=== PATIENT | female | born 1975 | race Caucasian/White ===

== ENCOUNTER 2018-04-06 13:38 | Emergency (ER) | payer BC ==
[2018-04-06] MEDS ORDERED: Aspirin 81 MG Tab.Chew ONE (13:43)
[2018-04-06] MEDS ORDERED: Nitroglycerin 0.4 MG Tab.SL ONE (13:45)
[2018-04-06] MEDS: Nitroglycerin 0.4 MG Tab.SL SL PRN ×2 (13:45→15:08)
[2018-04-06] MEDS ORDERED: Ondansetron 4 MG/2 ML SDV ONE (13:47)
--- NOTE | 2018-04-06 14:10 | EDM.PDOC ---
ED HPI GENERAL MEDICAL PROBLEM - General Chief Complaint: Chest Pain Stated Complaint: cardiovascular complaint Time Seen by Provider: 04/06/18 13:40 Source of Information: Reports: Patient History Limitations: Reports: No Limitations - History of Present Illness INITIAL COMMENTS - FREE TEXT/NARRATIVE: 42-year-old female presents to the emergency room with complaints of left chest pain. Onset was approximately 1310. She reports the pain was sharp and intermittent lasting approximately 15 seconds. Pain would recur approximately every 10 minutes. She took 1 baby aspirin. The chest pain occur she would describe it as a 7 out of 10. She had some radiation to the left shoulder and scapula. She denied jaw pain neck pain or abdominal pain. She had associated nausea. She denies palpitations. She is not diaphoretic. She denies any visual changes or changes in speech. She denies any weakness or dizziness. She's had prior history of syncopal episodes a couple years ago. This was followed up with an echo. She reports echocardiogram looked unremarkable. She's lost approximately 100 pounds and has had a gastric bypass in 2009. 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 She's never had any prior history of chest pain. She denies high cholesterol or hypertension. She is a nonsmoker. Patient does report that she's had a little bit of extra stress recently as her daughter is getting next week. Family history significant for cardiovascular disease. Father's had an CA at 63 years old. He had stents placed. Her mother is . Her mother had a history of congestive heart failure and high cholesterol. Onset: Today Onset Date: 04/06/18 Onset Time: 13:10 Duration: Minutes:, Intermittent Location: Reports: Chest, Back, Lower Extremity, Left (left shoulder) Quality: Reports: Stabbing Severity: Severe Improves with: Reports: None Worsens with: Reports: None Associated Symptoms: Reports: Chest Pain, Nausea/Vomiting. 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 (81mg) Left Chest Pain Score (Numeric/FACES): 7 - Related Data Allergies Allergy/AdvReac Type Severity Reaction Status Date / Time erythromycin base Allergy Rash Verified 04/06/18 14:03 Influenza Virus Vaccines Allergy Hives Verified 04/06/18 14:03 Home Meds: Home Meds Escitalopram Oxalate 10 mg PO DAILY 12/03/14 [History] Past Medical History HEENT History: Reports: Allergic Rhinitis Gastrointestinal History: Reports: Irritable Bowel Syndrome Genitourinary History: Reports: UTI, Recurrent 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 Denies: Blood Pressure Problem, Dyspnea on Exertion, Lightheadedness, Syncope Endocrine: Reports: No Symptoms GI/Abdominal: Reports: Nausea. Denies: Abdominal Pain, Vomiting : Reports: No Symptoms Musculoskeletal: Reports: No Symptoms Skin: Reports: No Symptoms Neurological: Denies: Confusion, Dizziness, Headache, Numbness, Paresthesia, Syncope, Trouble Speaking, Weakness, Change in Speech, Gait Disturbance Psychiatric: Reports: No Symptoms Hematologic/Lymphatic: Reports: No Symptoms Immunologic: Reports: No Symptoms ED EXAM, GENERAL - Physical Exam Exam: See Below Exam Limited By: No Limitations General Appearance: Alert, WD/WN, Anxious, Moderate Distress Eye Exam: Bilateral Eye: EOMI, PERRL Ears: Normal External Exam, Normal TMs Nose: Normal Inspection Throat/Mouth: Normal Inspection, Normal Teeth, Normal Gums, Normal Oropharynx, Normal Voice, No Airway Compromise Head: Atraumatic Neck: Normal Inspection. No: Lymphadenopathy (L), Lymphadenopathy (R) Respiratory/Chest: No Respiratory Distress, Lungs Clear, Normal Breath Sounds Cardiovascular: Normal Peripheral Pulses, Regular Rate, Rhythm, No Edema, No JVD , No Murmur Peripheral Pulses: 2+: Carotid (L), Carotid (R), Radial (L), Radial (R), Dorsalis Pedis (L), Dorsalis Pedis (R) GI/Abdominal: Normal Bowel Sounds, Soft Back Exam: Normal Inspection, Full Range of Motion Extremities: Normal Inspection, Normal Range of Motion Neurological: Alert, Oriented, CN II-XII Intact, No Motor/Sensory Deficits Psychiatric: Normal Affect, Anxious Skin Exam: Warm, Dry, Intact, Normal Color, No Rash Lymphatic: No Adenopathy EKG INTERPRETATION EKG Date: 04/06/18 Time: 13:50 Rhythm: NSR Rate (Beats/Min): 97 [place]: Normal P-Wave: Present QRS: Normal ST-T: Normal QT: Normal Comparison: NA - No Prior EKG EKG Interpretation Comments: Normal sinus rhythm Cannot rule out anterior infarct age undetermined Course - Vital Signs Last Recorded V/S: Last Vital Signs Temp 98.4 F 04/06/18 13:57 Pulse 89 04/06/18 14:11 Resp 17 04/06/18 14:11 BP 126/70 04/06/18 14:11 Pulse Ox 95 04/06/18 14:11 - Orders/Labs/Meds Orders: Active Orders 24 hr Category Date Time Status EKG Documentation Completion [RC] ASDIRECTED Care 04/06/18 13:52 Ordered Chest 1V Frontal [CR] Stat Exams 04/06/18 13:51 Ordered BASIC METABOLIC PANEL,BMP [CHEM] Stat Lab 04/06/18 13:51 Ordered TROPONIN I [CHEM] Stat Lab 04/06/18 13:53 Ordered Nitroglycerin [Nitrostat] Med 04/06/18 14:12 Active 0.4 mg SL Q5M PRN EKG 12 Lead [EK] Routine Ther 04/06/18 13:51 Ordered Medication Orders Nitroglycerin (Nitrostat) 0.4 mg SL Q5M PRN PRN Reason: Chest Pain Labs: Laboratory Tests 04/06/18 Range/Units 13:40 WBC 5.70 (5.00-10.00) 10^3/uL RBC 4.36 (3.80-5.50) 10^6/uL Hgb 13.3 (12.0-16.0) g/dL Hct 40.7 (37.0-47.0) % MCV 93.3 H D (82.0-92.0) fL MCH 30.5 (27.0-31.0) pg MCHC 32.7 (32.0-36.0) g/dL RDW 13.0 (11.5-14.5) % Plt Count 278 (150-400) 10^3/uL MPV 8.0 (7.4-10.4) fL Immature Gran % (Auto) 0.0 (0.0-5.0) % Neut % (Auto) 54.4 (50.0-70.0) % Lymph % (Auto) 37.9 (20.0-40.0) % [place] % (Auto) 6.1 (2.0-8.0) % Eos % (Auto) 1.1 (1.0-3.0) % Baso % (Auto) 0.5 (0.0-1.0) % Immature Gran # (Auto) 0.00 (0.00-0.50) 10^3/uL Neut # (Auto) 3.10 (2.50-7.00) 10^3/uL Lymph # (Auto) 2.16 (1.00-4.00) 10^3/uL [place] # (Auto) 0.35 (0.10-0.80) 10^3/uL Eos # (Auto) 0.06 L (0.10-0.30) 10^3/uL Baso # (Auto) 0.03 (0.00-0.10) 10^3/uL Meds: Medications Generic Name Dose Route Start Last Admin Trade Name Freq PRN Reason Stop Dose Admin Nitroglycerin 0.4 mg 04/06/18 14:12 Nitrostat SL Q5M PRN Chest Pain Discontinued Medications Generic Name Dose Route Start Last Admin Trade Name Freq PRN Reason Stop Dose Admin Aspirin Confirm 04/06/18 13:43 Aspirin Administered 04/06/18 13:44 Dose 243 mg .ROUTE .STK-MED ONE Aspirin 243 mg 04/06/18 14:12 Aspirin PO 04/06/18 14:13 ONETIME ONE Nitroglycerin Confirm 04/06/18 13:45 Nitrostat Administered 04/06/18 13:46 Dose 0.4 mg .ROUTE .STK-MED ONE Ondansetron HCl Confirm 04/06/18 13:47 Zofran Administered 04/06/18 13:48 Dose 4 mg .ROUTE .STK-MED ONE - Radiology Interpretation Free Text/Narrative:: Chest x-ray single view portable Findings: The lungs are clear. Cardiomediastinal contour is unremarkable Impression: No pneumonia or edema normal chest x-ray - Re-Assessments/Exams Free Text/Narrative Re-Assessment/Exam: 04/06/18 14:54 Patient was given 3 baby chewable aspirin and sublingual nitroglycerin. She reports her pain has improved and is less intense. Pain is now 2 out of 10. Patient was given 1 more nitroglycerin sublingual 04/06/18 15:06 She now reports with a second sublingual that her pain is now is 0 out of 10. The chest pain as well as back pain have resolved Departure - Departure Time of Disposition: 15:30 Disposition: DC/Tfer to [facility] Reason for Transfer *Q: Primary PCI Indicated Condition: Good Clinical Impression: Atypical chest pain Referrals: Kirti Steele PA-C [Primary Care Provider] - Forms: ED Department Discharge - My Orders Last 24 Hours: My Active Orders 04/06/18 13:51 Chest 1V Frontal [CR] Stat BASIC METABOLIC PANEL,BMP [CHEM] Stat EKG 12 Lead [EK] Routine 04/06/18 13:52 EKG Documentation Completion [RC] ASDIRECTED 04/06/18 13:53 TROPONIN I [CHEM] Stat 04/06/18 14:12 Nitroglycerin [Nitrostat] 0.4 mg SL Q5M PRN - Assessment/Plan Last 24 Hours: My Active Orders 04/06/18 13:51 Chest 1V Frontal [CR] Stat BASIC METABOLIC PANEL,BMP [CHEM] Stat EKG 12 Lead [EK] Routine 04/06/18 13:52 EKG Documentation Completion [RC] ASDIRECTED 04/06/18 13:53 TROPONIN I [CHEM] Stat 04/06/18 14:12 Nitroglycerin [Nitrostat] 0.4 mg SL Q5M PRN Assessment:: Atypical chest pain possible acute coronary syndrome Plan: 1. Patients can be transferred to [facility] with possible PCI indication. Patient was accepted by Dr. Roland. Patient will be transferred by ground ambulance. 2. Patient's condition is stable.
[2018-04-06] MEDS ORDERED: Aspirin 81 MG Tab.Chew PO ONE (14:12)
[2018-04-06] MEDS ORDERED: Ondansetron 4 MG/2 ML SDV IVPUSH ONE (14:14)
[2018-04-06 14:26] LABS: ANION GAP 13.3 mmol/L (5-15); CHLORIDE,CL 105 mmol/L (98-115); SODIUM,NA 140 mmol/L (136-145)
[2018-04-06 15:10] VITALS: BP 127/74
== END 2018-04-06 15:50 | disposition critical access hospital (66) ==
LOC: KA.ED 13:38
DX: R07.89 Other chest pain (principal); Z88.1 Allergy status to other antibiotic agents; Z88.7 Allergy status to serum and vaccine; Z79.899 Other long term (current) drug therapy
CPT/HCPCS: 71045; 80048; 84484; 85025; 96374; 99285; A9270-GY; J2405

== ENCOUNTER 2019-04-06 09:55 | Emergency (ER) | payer BC ==
[2019-04-06 10:18] VITALS: BP 137/75; PULSE 79
--- NOTE | 2019-04-06 10:18 | EDM.PDOC ---
ED HPI GENERAL MEDICAL PROBLEM - General Chief Complaint: Upper Extremity Injury/Pain Stated Complaint: RIGHT WRIST INJURY Time Seen by Provider: 04/06/19 10:05 Source of Information: Reports: Patient History Limitations: Reports: No Limitations - History of Present Illness INITIAL COMMENTS - FREE TEXT/NARRATIVE: 43 YO WF presents to ER with right wrist pain after losing her balance and falling backward on an outstretched hand. Pt reports she was stepping backward to get out of the way of her and fell landing on her wrist. Pt denies any other injury at this time. Pt is alert and oriented x4. Right wrist with mild swelling without erythema or ecchymosis. Onset Date: 04/05/19 Duration: Day(s): (1) Location: Reports: Upper Extremity, Right Quality: Reports: Ache Severity: Moderate Improves with: Reports: Rest Worsens with: Reports: Movement Associated Symptoms: Reports: No Other Symptoms Right Wrist Pain Score (Numeric/FACES): 8 - Related Data Allergies Allergy/AdvReac Type Severity Reaction Status Date / Time erythromycin base Allergy Rash Verified 04/06/19 10:21 Influenza Virus Vaccines Allergy Hives Verified 04/06/19 10:21 Home Meds: Home Meds Escitalopram Oxalate 20 mg PO DAILY 12/03/14 [History] hydrOXYzine pamoate [Hydroxyzine Pamoate] 25 mg PO DAILY PRN 04/06/19 [History] Past Medical History HEENT History: Reports: Allergic Rhinitis Cardiovascular History: Reports: Other (See Below) Other Cardiovascular History: echo in 2016 Gastrointestinal History: Reports: Irritable Bowel Syndrome Genitourinary History: Reports: UTI, Recurrent 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: Psychiatric History: Reports: Depression Endocrine/Metabolic History: Reports: Obesity/BMI 30+, Vitamin D Deficiency Hematologic History: Reports: Anemia, B12 Deficiency - Infectious Disease History Infectious Disease History: Reports: Chicken Pox - Past Surgical History GI Surgical History: Reports: Bariatric Procedure, Cholecystectomy Social & Family History - Family History Cardiac: Reports: [place] - Caffeine Use Caffeine Use: Reports: Coffee, Soda Review of Systems - Review of Systems Review Of Systems: See Below Constitutional: Reports: No Symptoms Eyes: Reports: No Symptoms Ears: Reports: No Symptoms Nose: Reports: No Symptoms Mouth/Throat: Reports: No Symptoms Respiratory: Reports: No Symptoms Cardiovascular: Reports: No Symptoms GI/Abdominal: Reports: No Symptoms Genitourinary: Reports: No Symptoms Musculoskeletal: Reports: Arm Pain Skin: Reports: No Symptoms ED EXAM, GENERAL - Physical Exam Exam: See Below Exam Limited By: No Limitations General Appearance: Alert, WD/WN, No Apparent Distress Head: Atraumatic, Normocephalic Neck: Normal Inspection, Supple, Non-Tender, Full Range of Motion Respiratory/Chest: No Respiratory Distress, Lungs Clear, Normal Breath Sounds, No Accessory Muscle Use, Chest Non-Tender Cardiovascular: Normal Peripheral Pulses, Regular Rate, Rhythm, No Edema, No Gallop, No JVD, No Murmur, No Rub GI/Abdominal: Normal Bowel Sounds, Soft, Non-Tender, No Organomegaly, No Distention, No Abnormal Bruit, No Mass Back Exam: Normal Inspection, Full Range of Motion, NT Extremities: No Pedal Edema, Normal Capillary Refill, Arm Pain (right distal lateral wrist pain with mild swelling and pain on supination), Limited Range of Motion Neurological: Alert, Oriented, CN II-XII Intact, Normal Cognition, Normal Gait, Normal Reflexes, No Motor/Sensory Deficits Psychiatric: Normal Affect, Normal Mood Skin Exam: Warm, Dry, Intact, Normal Color, No Rash Lymphatic: No Adenopathy Course - Vital Signs Last Recorded V/S: Last Vital Signs Temp 36.6 C 04/06/19 10:07 Pulse 79 04/06/19 10:07 Resp 18 04/06/19 10:07 BP 137/75 04/06/19 10:07 Pulse Ox 96 04/06/19 10:07 - Orders/Labs/Meds Orders: Active Orders 24 hr Category Date Time Status Hand Comp Min 3V Rt [CR] Stat Exams 04/06/19 10:17 Ordered Wrist Comp Min 3V Rt [CR] Stat Exams 04/06/19 10:17 Ordered Meds: Medications Discontinued Medications Generic Name Dose Route Start Last Admin Trade Name Freq PRN Reason Stop Dose Admin Ketorolac Tromethamine 60 mg 04/06/19 10:17 Toradol IM 04/06/19 10:18 ONETIME ONE Departure - Departure Time of Disposition: 10:52 Disposition: Home, Self-Care 01 Condition: Good Clinical Impression: Distal radius fracture, right Qualifiers: Encounter type: initial encounter Fracture type: closed - Discharge Information Instructions: Wrist Fracture Treated With Immobilization, [id number] Referrals: Mich Hedrick MD [Ordering Only Provider] - Forms: ED Department Discharge Additional Instructions: 1. discharge home 2. immobilization/splint 3. rest/ice/elevation 4. follow up with Dr Croft for further evaluation and treatment 5. return to ER for worsening symptoms 6. motrin 600mg every 6 hours as needed for pain - My Orders Last 24 Hours: My Active Orders 04/06/19 10:17 Hand Comp Min 3V Rt [CR] Stat Wrist Comp Min 3V Rt [CR] Stat - Assessment/Plan Last 24 Hours: My Active Orders 04/06/19 10:17 Hand Comp Min 3V Rt [CR] Stat Wrist Comp Min 3V Rt [CR] Stat Assessment:: 1. right nondisplaced comminuted distal radius fracture Plan: 1. discharge home 2. immobilization/splint 3. rest/ice/elevation 4. follow up with Dr Croft for further evaluation and treatment 5. return to ER for worsening symptoms 6. motrin 600mg every 6 hours as needed for pain
[2019-04-06] MEDS: Ketorolac 60 MG/2 ML SDV IM ONE (10:45)
--- NOTE | 2019-04-06 10:59 | CR ---
[id number] RAD/RAD Hand Right 3V; [id number] RAD/RAD Wrist Right 3V Min Exam: RAD Hand Right 3V, RAD Wrist Right 3V Min Indication:PAIN. Comparison: No prior imaging for comparison. Discussion: Acute comminuted intra-articular fracture of distal radius. There is approximately 2 or 3 mm of separation at the articular surface seen on the oblique view. No other evidence of a fracture in the hand or wrist. No dislocation. Impression: Acute comminuted intra-articular fracture of the distal radius. Austin Prescott MD 04/06/19 1057 Thank you for allowing us to participate in the care of your patient.
== END 2019-04-06 11:15 | disposition home or self-care (01) ==
LOC: KA.ED 09:55
DX: S52.501A Unspecified fracture of the lower end of right radius, initial encounter for closed fracture (principal); F32.9 Major depressive disorder, single episode, unspecified; E66.9 Obesity, unspecified; Z88.1 Allergy status to other antibiotic agents; Z88.7 Allergy status to serum and vaccine; Z79.899 Other long term (current) drug therapy; W18.30XA Fall on same level, unspecified, initial encounter; X50.1XXA Overexertion from prolonged static or awkward postures, initial encounter
CPT/HCPCS: 73110; 96372; 99283; J1885; 73130-RT

== ENCOUNTER 2019-12-27 19:09 | Emergency (ER) | payer BC ==
[2019-12-27 19:24] VITALS: BP 119/77; PULSE 119
[2019-12-27] MEDS ORDERED: Lidocaine 1% with EPINEPHrine 1:100,000 20 ML MDV INJECT ONE (19:41)
[2019-12-27] MEDS ORDERED: Bacitracin/Neomycin/Polymyxin B Oint 0.9 GM U/D Packet TOP ONE (20:10)
[2019-12-27] MEDS ORDERED: Amoxicillin/Clavulanate K 875-125 MG Tab PO ONE (20:13)
--- NOTE | 2019-12-27 20:21 | EDM.PDOC ---
ED HPI GENERAL MEDICAL PROBLEM - General Chief Complaint: Bite:Animal, Insect Stated Complaint: DOG BITE Time Seen by Provider: 12/27/19 19:36 Source of Information: Reports: Patient, Significant Other History Limitations: Reports: No Limitations - History of Present Illness INITIAL COMMENTS - FREE TEXT/NARRATIVE: Patient presents with dog bite to right arm. This was a neighbor's dog, a Demetrius. The dog has had all its shots. No other injuries. right forearm. Pain Score (Numeric/FACES): 5 - Related Data Allergies Allergy/AdvReac Type Severity Reaction Status Date / Time erythromycin base Allergy Rash Verified 12/27/19 19:16 Influenza Virus Vaccines Allergy Hives Verified 12/27/19 19:16 Home Meds: Home Meds Escitalopram Oxalate 20 mg PO DAILY 12/03/14 [History] hydrOXYzine pamoate [Hydroxyzine Pamoate] 25 mg PO DAILY PRN 04/06/19 [History] Cyanocobalamin (Vitamin B-12) [Vitamin B-12] 2,000 mcg PO DAILY 12/27/19 [History] Magnesium Oxide [Magnesium] 500 mg PO DAILY 12/27/19 [History] Multivitamin [Multivitamins] 1 each PO DAILY 12/27/19 [History] metFORMIN [Glucophage XR] 500 mg PO BIDMEALS 12/27/19 [History] Past Medical History HEENT History: Reports: Allergic Rhinitis Cardiovascular History: Reports: Other (See Below) Other Cardiovascular History: echo in 2016 Gastrointestinal History: Reports: Irritable Bowel Syndrome Genitourinary History: Reports: UTI, Recurrent 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: Psychiatric History: Reports: Depression Endocrine/Metabolic History: Reports: Obesity/BMI 30+, Vitamin D Deficiency Other Endocrine/Metabolic History: on metformin for weight loss Hematologic History: Reports: Anemia, B12 Deficiency - Infectious Disease History Infectious Disease History: Reports: Chicken Pox - Past Surgical History GI Surgical History: Reports: Bariatric Procedure, Cholecystectomy Musculoskeletal Surgical History: Reports: Carpal Tunnel Social & Family History - Family History Family Medical History: Noncontributory Cardiac: Reports: [place] - Tobacco Use Smoking Status *Q: Never Smoker - Caffeine Use Caffeine Use: Reports: Coffee, Soda, Tea - Recreational Drug Use Recreational Drug Use: No ED ROS GENERAL - Review of Systems Review Of Systems: See Below Constitutional: Denies: Fever, Chills, Malaise, Weakness HEENT: Denies: Ear Pain, Throat Pain, Vision Change Respiratory: Denies: Shortness of Breath, Cough Cardiovascular: Denies: Chest Pain, Syncope GI/Abdominal: Denies: Vomiting : Denies: Dysuria Musculoskeletal: Reports: No Symptoms Skin: Denies: Cyanosis, Jaundice, Mottled, Pallor, Diaphoresis Neurological: Denies: Confusion, Dizziness, Headache, Seizure, Syncope, Trouble Speaking, Difficulty Walking Psychiatric: Denies: Agitation, Anxiety, Confusion ED EXAM, ANIMAL BITE - Physical Exam Exam: See Below Exam Limited By: No Limitations General Appearance: Alert, WD/WN, No Apparent Distress Eye Exam: Bilateral Eye: EOMI, Normal Inspection, PERRL Ears: Normal External Exam, Hearing Grossly Normal Nose: Normal Inspection, No Blood Throat/Mouth: Normal Inspection, Normal Lips, Normal Voice, No Airway Compromise Head: Atraumatic, Normocephalic Neck: Normal Inspection, Full Range of Motion Respiratory/Chest: No Respiratory Distress, Lungs Clear, Normal Breath Sounds, No Accessory Muscle Use Cardiovascular: Regular Rate, Rhythm, No Murmur Back Exam: Normal Inspection, Full Range of Motion. No: CVA Tenderness (L), CVA Tenderness (R) Extremities: Normal Range of Motion, Normal Capillary Refill, Other (one somewhat jagged 3 cm laceration on the right mid-dorsal forearm and an 8 mm laceration on volar forearm. Full AROM and normal CMS throughout. No evidence of tendon or nerve injury on exam or exploration of wounds.) Neurological: Alert, Oriented, Normal Cognition, No Motor/Sensory Deficits Psychiatric: Normal Affect, Normal Mood Skin Exam: Normal Color, Warm/Dry ED ANIMAL BITE PROCEDURES - Laceration/Wound Repair Right Arm Lac/Wound Length In cm: 2.5 (second one is 8 mm) Appearance: Subcutaneous, Irregular, Mildly Contaminated Distal NVT: Neuro & Vascular Intact, No Tendon Injury Anesthetic Type: Local Local Anesthesia - Lidocaine (Xylocaine): 1% with EPI Local Anesthetic Volume: 3cc Skin Prep: Chlorhexidine (Hibiciens), Saline Saline Irrigation (cc's): 160 Exploration/Debridement/Repair: Wound Explored, In a Bloodless Field, Explored to Base Closed With: Sutures Suture Size: 4-0 # of Sutures: 5 (closed loosely to facilitate potential drainage) Suture Type: Nylon, Interrupted, Simple Sterile Dressing Applied: Nurse Tetanus Status Addressed: Yes Complications: No Course - Vital Signs Last Recorded V/S: Last Vital Signs Temp 97.4 F 12/27/19 19:13 Pulse 119 H 12/27/19 19:13 Resp 19 12/27/19 19:13 BP 119/77 12/27/19 19:13 Pulse Ox 96 12/27/19 19:13 - Orders/Labs/Meds Meds: Medications Discontinued Medications Generic Name Dose Route Start Last Admin Trade Name Freq PRN Reason Stop Dose Admin Amoxicillin/Clavulanate Potassium 6 tab 12/27/19 20:13 Augmentin 875 Mg/125 Mg PO 12/27/19 20:14 ONETIME ONE Lidocaine/Epinephrine 20 ml 12/27/19 19:41 12/27/19 19:50 Xylocaine 1% With Epinephrine 1:100,000 INJECT 12/27/19 19:42 3 ml ONETIME ONE Administration Neomycin/Polymyxin/Bacitracin 1 each 12/27/19 20:10 Triple Antibiotic Oint TOP 12/27/19 20:11 ONETIME ONE - Re-Assessments/Exams Free Text/Narrative Re-Assessment/Exam: 12/27/19 20:20 Discussed findings and treatment plan with patient and her . Sterile technique was used to close as in procedure above. Patient did well. Given Augmentin in ER and supply for over the weekend plus Rx. Discharged to home in stable condition. 12/27/19 20:29 Discussed she can use Ibuprofen 600 mg tid prn pain and Tylenol as well if needed. Departure - Departure Time of Disposition: 20:15 Disposition: Home, Self-Care 01 Condition: Good Clinical Impression: Dog bite of arm Qualifiers: Encounter type: initial encounter Laterality: right Qualified Code(s): S41.151A - Open bite of right upper arm, initial encounter; W54.0XXA - Bitten by dog, initial encounter - Discharge Information Instructions: Animal Bite, Adult, Sutured Wound Care Referrals: Kirti Steele PA-C [Primary Care Provider] - Additional Instructions: Keep wound clean and dry except for showering or washing under fresh running water. Take the antibiotic as directed. Use an ointment on wound such as topical antibiotic or petroleum jelly to keep wound from drying out. See your PCP in 10 days for suture removal or sooner if any sign of infection or other problems. Sepsis Event Note (ED) - Evaluation Sepsis Screening Result: No Definite Risk - Focused Exam Vital Signs: Vital Signs Temp Pulse Resp BP Pulse Ox 12/27/19 19:13 97.4 F 119 H 19 119/77 96
== END 2019-12-27 20:26 | disposition home or self-care (01) ==
LOC: KA.ED 19:09
DX: S41.151A Open bite of right upper arm, initial encounter (principal); E66.9 Obesity, unspecified; F32.9 Major depressive disorder, single episode, unspecified; Z88.1 Allergy status to other antibiotic agents; Z88.7 Allergy status to serum and vaccine; Z79.899 Other long term (current) drug therapy; W54.0XXA Bitten by dog, initial encounter
CPT/HCPCS: 12001; 99283; A9270-GY